=== PATIENT | male | born 1985 | race Hispanic/Latino ===

== ENCOUNTER 2020-05-18 16:10 | Emergency (ER) | payer SELFPAY ==
[~2020-05-18] VITALS: Ht 170.2 cm; Wt 84.0 kg
[2020-05-18] MEDS ORDERED: SILVADENE1 % EX (17:27)
[2020-05-18] MEDS ORDERED: LORTAB 1010 MG PO (17:27)
[2020-05-18] MEDS ORDERED: BACTRIM DS1 TAB PO (17:27)
[2020-05-18 18:00] VITALS: BP 132/82
== END 2020-05-18 18:00 | disposition home or self-care (01) | DRG 935 ==
LOC: ED 16:10
PROC: 2W28X4Z Dressing of Right Upper Extremity using Bandage (ICD-10-PCS; principal; 2020-05-18)
DX: T22.291A Burn of second degree of multiple sites of right shoulder and upper limb, except wrist and hand, initial encounter (principal); T31.0 Burns involving less than 10% of body surface; F17.290 Nicotine dependence, other tobacco product, uncomplicated; X10.2XXA Contact with fats and cooking oils, initial encounter; Y93.G3 Activity, cooking and baking; Y92.009 Unspecified place in unspecified non-institutional (private) residence as the place of occurrence of the external cause

== ENCOUNTER 2021-09-21 21:11 | Emergency (ER) | payer OTHER ==
[~2021-09-21] VITALS: Ht 170.2 cm; Wt 81.8 kg
[~2021-09-21 21:11] MED LIST: BACTRIM DS1 TAB PO; LORTAB 1010 MG PO; SILVADENE1 % EX
[2021-09-21 21:59] LABS: HEMATOCRIT 42.7 % (39.0-50.0); IMMATURE GRANULOCYTES 0.3 % (0.0-5.0); MEAN CELL VOLUME 94.5 fL CALC (80.0-100.0); MEAN CORPUSCULAR HGB CONC 32.8 g/dL CAL (32.0-36.0); NEUT# 4.93 thou/uL (1.82-7.42); RED BLOOD COUNT 4.52 mill/uL (4.70-6.10); RED CELL DISTRI WIDTH 12.5 % (11.5-15.5); URINE BILIRUBIN - DIPSTICK NEGATIVE (NEGATIVE); URINE BLOOD DIPSTICK TRACE-INTACT (NEGATIVE); URINE COLOR YELLOW; URINE GLUCOSE - DIPSTICK NEGATIVE (NEGATIVE); URINE KETONE TRACE mg/dL (NEGATIVE); URINE LEUK ESTERASE NEGATIVE (NEGATIVE); URINE PROTEIN - DIPSTICK NEGATIVE (NEG-TRACE); URINE SPECIFIC GRAVITY >=1.030; URINE UROBILINOGEN - DIPSTICK 0.2 E.U./dL (0.2)
[2021-09-21 22:00] LABS: URINE NITRITE - DIPSTICK NEGATIVE (Negative)
[2021-09-21 22:16] VITALS: BP 110/67
[2021-09-21 22:30] LABS: ALBUMIN 4.2 g/dL (3.2-5.0); ALKALINE PHOSPHATASE 99 u/l (38-126); ANION GAP 14 (6-22 (CALC)); BILIRUBIN, TOTAL 0.1 mg/dL (0.0-1.4); BUN 17 mg/dL (9-20); BUN/CREATININE RATIO 19 (12-20 (CALC)); CARBON DIOXIDE 19 mmol/l (22-30); CHLORIDE 109 mmol/l (95-108); CREATININE 0.9 mg/dL (0.7-1.3); ETHYL ALCOHOL 120 mg/dl (0-30); GFR FOR AFR.AMER. > 60 ML/MIN (>=60 (CALC)); GFR OTHER RACES > 60 ML/MIN (>=60 (CALC)); POTASSIUM 3.9 mmol/l (3.5-5.1); SGOT/AST 26 u/l (17-59); SODIUM 138 mmol/l (137-146); TOTAL PROTEIN 7.5 g/dL (6.3-8.2)
[2021-09-21 23:11] VITALS: BP 104/69
[2021-09-21 23:16] VITALS: BP 124/78
[2021-09-21 23:30] VITALS: BP 121/78
[2021-09-21 23:44] VITALS: BP 121/78
== END 2021-09-21 23:47 | DRG 951 ==
LOC: ED 21:11
PROVIDERS: Emergency Medicine
DX: Z04.89 Encounter for examination and observation for other specified reasons (principal); M25.561 Pain in right knee; M79.661 Pain in right lower leg; R51.9 Headache, unspecified; M54.2 Cervicalgia; R07.81 Pleurodynia; W54.1XXA Struck by dog, initial encounter; F17.210 Nicotine dependence, cigarettes, uncomplicated